=== PATIENT | female | born 2000 ===

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

== ENCOUNTER 2018-02-15 12:43 | Emergency (ER) | payer MEDICAID ==
[2018-02-15 12:43] VITALS: BMI 264.6
[2018-02-15 13:19] VITALS: RESP 18; TEMP 99.1
--- NOTE | 2018-02-15 13:47 | ED PDOC ---
Arrival/HPI - General Chief Complaint: Abdominal Pain Time Seen by Provider: 02/15/18 13:37 Historian: Patient - History of Present Illness Narrative History of Present Illness (Text): 02/15/18 13:47 17 year old female, with no significant past medical history, presents to the emergency department complaining of intermittent abdominal pain that began 3 days ago associated with nausea. Patient reports worsening pain and decided to come in for evaluation. Patient also reports constipation for the past week, but denies taking any medication for relief. Her last menstrual cycle was . Patient denies any fever, chills, chest pain, shortness of breath, vomiting , diarrhea, urinary symptoms, vaginal discharge, vaginal bleeding, back pain, neck pain, headache, dizziness, or any other complaints. PMD: Dr. Barry Time/Duration: Other (3 days) Symptom Onset: Gradual Symptom Course: Intermittent, Worsening Activities at Onset: Light Context: Home Past Medical History - Provider Review Nursing Documentation Reviewed: Yes - Past History Past History: No Previous - Infectious Disease Hx of Infectious Diseases: None - Tetanus Immunization Tetanus Immunization: Unknown - Reproductive Menopause: No - Cardiac Hx Cardiac Disorders: No - Pulmonary Hx Respiratory Disorders: No - Endocrine/Metabolic Hx Hypothyroidism: Yes - Integumentary Hx Dermatological Disorder: No - Psychiatric Hx Depression: No Hx Substance Use: No - Past Surgical History Past Surgical History: No Previous - Anesthesia Hx Anesthesia: No - Suicidal Assessment Feels Threatened In Home Enviroment: No Family/Social History - Physician Review Nursing Documentation Reviewed: Yes Family/Social History: No Known Family HX Smoking Status: Never Smoked Hx Alcohol Use: No Hx Substance Use: No Hx Substance Use Treatment: No Allergies/Home Meds Allergies/Adverse Reactions: Allergies No Known Allergies Allergy (Verified 12/07/16 20:48) Home Medications: Home Meds Medication Instructions Recorded Confirmed Contro 02/15/18 Levothyroxine [Synthroid] 0 02/15/18 Review of Systems - Physician Review All systems were reviewed & negative as marked: Yes - Review of Systems Constitutional: absent: Fevers, Other (Chills) Respiratory: absent: SOB Cardiovascular: absent: Chest Pain Gastrointestinal: Abdominal Pain, Constipation, Nausea. absent: Diarrhea, Vomiting Genitourinary Female: absent: Dysuria, Frequency, Hematuria, Vaginal Bleeding, Vaginal Discharge Musculoskeletal: absent: Back Pain, Neck Pain Neurological: absent: Headache, Dizziness Physical Exam Vital Signs Reviewed: Yes Vital Signs Temp Pulse Resp BP Pulse Ox 02/15/18 16:00 74 18 118/69 100 02/15/18 14:56 78 18 122/71 98 02/15/18 13:12 99.1 F 80 18 124/77 99 Temperature: Afebrile Blood Pressure: Normal Pulse: Regular Respiratory Rate: Normal Appearance: Positive for: Well-Appearing, Non-Toxic, Comfortable Pain Distress: None Mental Status: Positive for: Alert and Oriented X 3 - Systems Exam Head: Present: Atraumatic, Normocephalic Pupils: Present: PERRL Extroacular Muscles: Present: EOMI Conjunctiva: Present: Normal Mouth: Present: Moist Mucous Membranes Neck: Present: Normal Range of Motion Respiratory/Chest: Present: Clear to Auscultation, Good Air Exchange. No: Respiratory Distress, Accessory Muscle Use Cardiovascular: Present: Regular Rate and Rhythm, Normal S1, S2. No: Murmurs Abdomen: Present: Tenderness (epigastric tenderness and left-sided tenderness), Guarding. No: Distention, Peritoneal Signs, Rebound Back: Present: Normal Inspection Upper Extremity: Present: Normal Inspection. No: Cyanosis, Edema Lower Extremity: Present: Normal Inspection. No: Edema Neurological: Present: GCS=15, CN II-XII Intact, Speech Normal Skin: Present: Warm, Dry, Normal Color. No: Rashes Psychiatric: Present: Alert, Oriented x 3, Normal Insight, Normal Concentration Medical Decision Making ED Course and Treatment: 02/15/18 13:47 Impression: 17 year old female presents complaining of abdominal pain associated with nausea for the past 3 days. Patient also reports constipation for the past week. Differential Diagnosis included but are not limited to: Constipation VS UTI Plan: -- Labs -- Citrate of Mag, Pepcid, IV Fluids -- Abdomen Multiple View x-ray -- Urinalysis -- Reassess and disposition Prior Visits: Notes and results from previous visits were reviewed. Progress Notes: 02/15/18 15:16 Abdominal X-ray result is negative for air fluid levels and positive for constipation. Interpreted by me. 02/15/18 17:39 UA showed UTI with Yeast. 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 Normal external genitalia. White thick discharge. No cervical motion tenderness or adnexal tenderness. No lesions. No yellow or pus discharge. Patient does not have any pelvic exam findings that require an ultrasound at this time. Her abdomen is soft and not tender. She has not had a bowel movement yet but feels better. She has not vomited in the ED and is able to tolerate PO fluids. She will f/u with her PMD in 1-2days. Advised to return to the ED if symptoms worsen , fever, decreased appetitite, weakness or any other concern. - Lab Interpretations Lab Results: 02/15/18 14:45 02/15/18 14:45 Lab Results 02/15/18 14:45: Sodium 144, Potassium 3.7, Chloride 107, Carbon Dioxide 24, Anion Gap 16, BUN 16, Creatinine 0.6 L, Est GFR ( Amer) > 60, Est GFR ( Non-Af Amer) > 60, Random Glucose 86, Calcium 9.4, Magnesium 2.0, Total Bilirubin 0.6, AST 30, ALT 31, Alkaline Phosphatase 104, Total Protein 7.7, Albumin 4.5, Globulin 3.2, Albumin/Globulin Ratio 1.4, Lipase 34 02/15/18 14:45: WBC 7.5 D, RBC 5.28, Hgb 13.3, Hct 40.5, MCV 76.7 L, MCH 25.2, MCHC 32.8, RDW 15.6 H, Plt Count 250, MPV 10.3, Gran % 59.5, Lymph % (Auto) 34.8 , Long % (Auto) 3.3, Eos % (Auto) 2.3, Baso % (Auto) 0.1, Gran # 4.45, Lymph # ( Auto) 2.6, Long # (Auto) 0.3, Eos # (Auto) 0.2, Baso # (Auto) 0.01 02/15/18 13:30: Urine Color Yellow, Urine Appearance Clear, Urine pH 6.0, Ur Specific [place] >= 1.030, Urine Protein Trace H, Urine Glucose (UA) Negative, Urine Ketones Negative, Urine Blood Trace-lysed H, Urine Nitrate Negative, Urine Bilirubin Negative, Urine Urobilinogen 0.2, Ur Leukocyte Esterase Small H , Urine RBC 2 - 5, Urine WBC 5 - 10, Ur Epithelial Cells 6 - 8, Urine Bacteria Many, Fine Granular Casts 0 - 2, Urine Other Uyeast I have reviewed the lab results: Yes - RAD Interpretation Radiology Orders: 02/15/18 13:53 ABD 2 VIEWS (FLAT/UP OR DECUB) [RAD] Stat Dermatology Procedural Physician: ED Physician - Medication Orders Current Medication Orders: Discontinued Medications Cephalexin Monohydrate (Keflex) 500 mg PO STAT STA PRN Reason: Protocol Stop: 02/15/18 17:35 Famotidine (Pepcid) 20 mg IVP STAT STA Stop: 02/15/18 13:53 Last Admin: 02/15/18 14:44 Dose: 20 mg IVP Administration Document 02/15/18 14:44 DILIP (Rec: 02/15/18 14:44 DILIP [id number]) Charges for Administration # of IVP Administrations 1 Sodium Chloride (Sodium Chloride 0.9%) 500 mls @ 1,000 mls/hr IV .Q30M STA Stop: 02/15/18 14:21 Last Admin: 02/15/18 14:45 Dose: 1,000 mls/hr eMAR Start Stop Document 02/15/18 14:45 DILIP (Rec: 02/15/18 14:46 DILIP [id number]) Intravenous Solution Start Date 02/15/18 Start Time 14:45 End Date 02/15/18 End time 15:15 Total Infusion Time 30 Magnesium Citrate (Citrate Of Mag) 300 ml PO ONCE ONE Stop: 02/15/18 13:54 Last Admin: 02/15/18 14:44 Dose: 300 ml Sodium Phosphate (Fleet Enema) 135 ml RC STAT STA Stop: 02/15/18 17:28 - Scribe Statement The provider has reviewed the documentation as recorded by the Cinda Ribera Provider Scribe Attestation: All medical record entries made by the Scribe were at my direction and personally dictated by me. I have reviewed the chart and agree that the record accurately reflects my personal performance of the history, physical exam, medical decision making, and the department course for this patient. I have also personally directed, reviewed, and agree with the discharge instructions and disposition. Disposition/Present on Arrival - Present on Arrival Any Indicators Present on Arrival: No History of DVT/PE: No History of Uncontrolled Diabetes: No Urinary Catheter: No History of Decub. Ulcer: No History Surgical Site Infection Following: None - Disposition Have Diagnosis and Disposition been Completed?: Yes Diagnosis: UTI (urinary tract infection), Yeast infection, Constipation Disposition: HOME/ ROUTINE Disposition Time: 17:42 Patient Plan: Discharge Patient Problems: Current Active Problems Problem Status Onset Constipation Acute UTI (urinary tract infection) Acute Yeast infection Acute Condition: IMPROVED Discharge Instructions (ExitCare): Urinary Tract Infections in Adults, Constipation in Adults, Yeast Infection (DC) Additional Instructions: TUAN HERNANDEZ, thank you for letting us take care of you today. Your provider was Semaj Garcia DO and you were treated for Constipation, UTI, Yeast Infection. The emergency medical care you received today was directed at your acute symptoms. If you were prescribed any medication, please fill it and take as directed. It may take several days for your symptoms to resolve. Return to the Emergency Department if your symptoms worsen, do not improve, or if you have any other problems. Please contact your doctor or call one of the physicians/clinics you have been referred to that are listed on the Patient Visit Information form that is included in your discharge packet. Bring any paperwork you were given at discharge with you along with any medications you are taking to your follow up visit. Our treatment cannot replace ongoing medical care by a primary care provider outside of the emergency department. Thank you for allowing the [facility] team to be part of your care today. If you had an X-Ray or CT scan: A Radiologist will review the ED reading if any change in treatment is needed we will contact you. If you had a blood, urine, or wound culture: It will take several days for the results, if any change in treatment is needed we will contact you. If you had an STI test: It will take 48 hours for the results. Please call after 1 week if you have not heard back. Prescriptions: Cephalexin [Keflex] 500 mg PO BID #10 capsule Clotrimazole 1% Vaginal [Lotrimin 1% Vaginal] 1 applic VG QPM #1 tube Docusate Sodium [Dulcolax Stool Softener] 100 mg PO TID #30 capsule Referrals: Non [facility] Provider, [Non-Staff] - Follow up with primary Forms: [email or web address] (Togolese), WORK NOTE
[2018-02-15] MEDS ORDERED: Sodium Chloride 0.9% 500 ML IV STA (13:52)
[2018-02-15] MEDS ORDERED: Magnesium Citrate Oral SOL (300 ml) PO ONE (13:53)
[2018-02-15 15:18] LABS: BASO # 0.01 K/mm3 (0.0-2.0); BASO % 0.1 % (0.0-3.0); EOS # 0.2 (0.0-0.7); EOS % 2.3 % (1.5-5.0); GRAN # 4.45 (1.4-6.5); GRAN % 59.5 % (50.0-68.0); HEMOGLOBIN 13.3 g/dL (12.0-16.0); LYMPH # 2.6 (1.2-3.4); LYMPH % 34.8 % (22.0-35.0); MEAN CELL VOLUME 76.7 fl (80.0-105.0); MEAN CORPUSCULAR HEMOGLOBIN 25.2 pg (25.0-35.0); MEAN CORPUSCULAR HGB CONC 32.8 g/dl (31.0-37.0); MEAN PLATELET VOLUME 10.3 fl (7.0-11.0); MONO # 0.3 (0.1-0.6); MONO % 3.3 % (1.0-6.0); RBC 5.28 10^6/uL (3.5-6.1); RED CELL DISTRIBUTION WIDTH 15.6 % (11.5-14.5); WHITE BLOOD COUNT 7.5 10^3/ul (4.5-11.0)
[2018-02-15 15:20] LABS: ALB/GLOB RATIO 1.4 (1.1-1.8); ALBUMIN 4.5 g/dL (3.0-4.8); ALT/SGPT 31 U/L (7-56); AST/SGOT 30 U/L (14-36); BLOOD UREA NITROGEN 16 mg/dL (7-21); CALCIUM 9.4 mg/dL (8.4-10.5); GFR NON-AFRICAN AMERICAN > 60; LIPASE 34 U/L (23-300)
--- NOTE | 2018-02-15 15:40 | RAD ---
Date of service: 02/15/2018 HISTORY: abd pain r/o obstruction COMPARISON: No prior. FINDINGS: BOWEL: Normal. No obstruction. No free air. BONES: Normal. OTHER FINDINGS: None. IMPRESSION: Mild constipation
[2018-02-15 16:02] VITALS: O2SAT 100
[2018-02-15 16:41] LABS: URINE BILIRUBIN NEGATIVE (NEGATIVE); URINE BLOOD TRACE-LYSED (NEGATIVE); URINE GLUCOSE (UA) NEGATIVE (NEGATIVE); URINE LEUKOCYTE ESTERASE SMALL Leu/uL (NEGATIVE); URINE PROTEIN TRACE mg/dL (<30 mg/dL); URINE UROBILINOGEN 0.2 E.U./dL (<1 E.U./dL)
[2018-02-15 16:46] LABS: URINE APPEARANCE CLEAR (CLEAR); URINE COLOR YELLOW (YELLOW)
[2018-02-15 17:12] LABS: URINE BACTERIA MANY (NEG)
[2018-02-15 17:13] LABS: URINE FINE GRANULAR CAST 0 - 2 /hpf (0-2)
[2018-02-15 17:47] VITALS: BP 121/73; PULSE 69
== END 2018-02-15 18:03 | disposition home or self-care (01) ==
LOC: ED 12:43
DX: R11.0 Nausea (principal); N39.0 Urinary tract infection, site not specified; K59.00 Constipation, unspecified; B37.3 Candidiasis of vulva and vagina
CPT/HCPCS: 74019; 80053; 81001; 83690; 83735; 85025; 87086; 87491; 87591; 96374; 99283; J7040

== ENCOUNTER 2018-11-08 19:37 | Emergency (ER) | payer MEDICAID ==
[2018-11-08 20:35] VITALS: BMI 23.3
[2018-11-08 20:40] VITALS: TEMP 97.8; O2SAT 100
--- NOTE | 2018-11-08 20:59 | ED PDOC ---
Arrival/HPI - General Chief Complaint: Medical Clearance Time Seen by Provider: 11/08/18 20:41 Historian: Patient - History of Present Illness Narrative History of Present Illness (Text): 11/08/18 20:52 Tana Boyd is a 18 year old female, whose past medical history includes Graves' disease, who presents to the ED complaining of swelling to her neck. Patient states she has been experiencing some slight swelling to her anterior neck for the past few days. Patient notes she was previously on "thyroid medication" but is unable to recall the name and notes she has not taken it in 2 months. Patient states she otherwise feels fine and denies any fever, chills, chest pain, shortness of breath, nausea, vomiting, diarrhea, urinary symptoms, back pain, neck pain, headache, dizziness, or any other complaints. Symptom Onset: Gradual Symptom Course: Unchanged Activities at Onset: Light Context: Home Past Medical History - Provider Review Nursing Documentation Reviewed: Yes - Past History Past History: No Previous - Infectious Disease Hx of Infectious Diseases: None - Tetanus Immunization Tetanus Immunization: Unknown - Cardiac Hx Cardiac Disorders: No - Pulmonary Hx Respiratory Disorders: No - Endocrine/Metabolic Hx Hypothyroidism: Yes - Integumentary Hx Dermatological Disorder: No - Psychiatric Hx Depression: No Hx Substance Use: No - Past Surgical History Past Surgical History: No Previous - Anesthesia Hx Anesthesia: No Hx Anesthesia Reactions: No Hx Malignant Hyperthermia: No - Suicidal Assessment Feels Threatened In Home Enviroment: No Family/Social History - Physician Review Nursing Documentation Reviewed: Yes Family/Social History: Unknown Family HX Smoking Status: Never Smoked Hx Alcohol Use: No Hx Substance Use: No Hx Substance Use Treatment: No Allergies/Home Meds Allergies/Adverse Reactions: Allergies No Known Allergies Allergy (Verified 12/07/16 20:48) Home Medications: Home Meds Medication Instructions Recorded Confirmed Contro 02/15/18 Levothyroxine [Synthroid] 0 02/15/18 Review of Systems - Physician Review All systems were reviewed & negative as marked: Yes - Review of Systems Constitutional: Normal. absent: Fevers Eyes: Normal ENT: Normal Respiratory: Normal. absent: SOB, Cough Cardiovascular: Normal. absent: Chest Pain Gastrointestinal: Normal. absent: Abdominal Pain, Diarrhea, Nausea, Vomiting Genitourinary Female: Normal. absent: Dysuria, Frequency, Hematuria, Urine Output Changes Musculoskeletal: Normal. absent: Back Pain, Neck Pain Skin: Normal. absent: Rash Neurological: Normal. absent: Headache, Dizziness Endocrine: Other (+swelling to neck/goiter) Hemo/Lymphatic: Normal Psychiatric: Normal Physical Exam Vital Signs Reviewed: Yes Vital Signs Temp Pulse Resp BP Pulse Ox 11/08/18 20:39 97.8 F 74 18 115/78 100 Temperature: Afebrile Blood Pressure: Normal Pulse: Regular Respiratory Rate: Normal Appearance: Positive for: Well-Appearing, Non-Toxic, Comfortable Pain Distress: None Mental Status: Positive for: Alert and Oriented X 3 - Systems Exam Head: Present: Atraumatic, Normocephalic Pupils: Present: PERRL Extroacular Muscles: Present: EOMI Conjunctiva: Present: Normal Mouth: Present: Moist Mucous Membranes Nose (External): Present: Other (Slight swelling/goiter) Nose (Internal): Present: Normal Inspection Neck: Present: Normal Range of Motion Respiratory/Chest: Present: Clear to Auscultation, Good Air Exchange. No: Respiratory Distress, Accessory Muscle Use Cardiovascular: Present: Regular Rate and Rhythm, Normal S1, S2. No: Murmurs Abdomen: No: Tenderness, Distention, Peritoneal Signs Back: Present: Normal Inspection Upper Extremity: Present: Normal Inspection. No: Cyanosis, Edema Lower Extremity: Present: Normal Inspection. No: Edema Neurological: Present: GCS=15, CN II-XII Intact, Speech Normal Skin: Present: Warm, Dry, Normal Color. No: Rashes Psychiatric: Present: Alert, Oriented x 3, Normal Insight, Normal Concentration Medical Decision Making ED Course and Treatment: 11/08/18 20:52 Impression: 18 year old female complaining of some swelling to her anterior neck. Plan: -- T4, TSH -- Reassess and disposition Prior Visits: Notes and results from previous visits were reviewed. Progress Notes: - Scribe Statement The provider has reviewed the documentation as recorded by the Cinda Kaplan Provider Scribe Attestation: All medical record entries made by the Scribe were at my direction and personally dictated by me. I have reviewed the chart and agree that the record accurately reflects my personal performance of the history, physical exam, medical decision making, and the department course for this patient. I have also personally directed, reviewed, and agree with the discharge instructions and disposition. Disposition/Present on Arrival - Present on Arrival Any Indicators Present on Arrival: No History of DVT/PE: No History of Uncontrolled Diabetes: No Urinary Catheter: No History of Decub. Ulcer: No History Surgical Site Infection Following: None - Disposition Have Diagnosis and Disposition been Completed?: Yes Diagnosis: Goiter Disposition: HOME/ ROUTINE Disposition Time: 23:00 Condition: GOOD Discharge Instructions (ExitCare): Multinodular Goiter Additional Instructions: follow up with dr ruiz tylenol as needed for pain Referrals: Zach Barry [Primary Care Provider] - Follow up with primary Chelsie Ruiz MD [Medical Doctor] - Follow up with primary Forms: [facility] ([place]ani)
[2018-11-08 23:04] VITALS: BP 112/69; PULSE 89; RESP 17
== END 2018-11-08 23:03 | disposition home or self-care (01) ==
LOC: ED 19:37
DX: E04.9 Nontoxic goiter, unspecified (principal)